=== PATIENT | female | born 1955 | race Caucasian/White ===

== ENCOUNTER 2017-10-02 06:34 | Day surgery (SDC) | payer OTHER ==
--- NOTE | 2017-09-26 13:33 | RAD REPORT ---
EXAM DESCRIPTION: RADOP - Outpt Chest Pa/Lat (2 Views) - 09/26/2017 1:25 pm CLINICAL HISTORY: Preop chest COMPARISON: None. TECHNIQUE: PA and lateral views of the chest were obtained. FINDINGS: The lungs are clear of an acute infiltrate or mass. No failure or volume overload. Heart size is normal and central vasculature is within normal limits. No pleural effusion or pneumothorax s een. No acute bone findings seen. Surgical hardware is present left proximal humerus from prior fract ure repair. There degenerative changes at the right shoulder joint. No acute aortic finding. IMPRESSION: No acute cardiopulmonary process. Minimal fibrotic lung change present.
[2017-09-26 14:32] LABS: Absolute Lymphocytes (CBC) 1.9 K/uL (0.7-4.9); Absolute Monocytes 0.7 K/uL (0.1-1.3); Absolute Neutrophil 5.8 K/uL (1.8-8.0); Basophils % 2.1 % (0-1.3); Eosinophils % 4.1 % (0-4.4); Hematocrit 39.7 % (36.0-45.0); Lymphocytes % 21.3 % (15.3-44.8); MCH 30.8 pg (27.0-35.0); MCV 90.9 fL (80-100); Monocytes % 7.6 % (3.3-12.3); RBC Red Blood Cell Count 4.37 M/uL (3.86-4.86)
[2017-09-26 14:36] LABS: Protime INR 1.17
--- NOTE | 2017-09-26 15:07 | EKG ---
Test Date: 2017-09-26 Test Time: 13:12:51 Furnace Reliner: AAMIR MEASUREMENT RESULTS: Intervals: Rate: 73 WV: 158 QRSD: 72 QT: 406 QTc: 447 Woodruff: P: 63 WV: 158 QRS: 56 T: 35 INTERPRETIVE STATEMENTS: Normal sinus rhythm Normal ECG Compared to ECG 05/18/2006 12:28:10 No significant changes Electronically Signed On 09-26-17 15:06:29 MATERIAL MIXER by Rubén Beltran
[2017-09-26 15:47] LABS: Potassium 4.7 mEq/L (3.6-5.0)
[2017-10-02] MEDS ORDERED: NA CHLORIDE 0.9% 1,000 ML ONE (07:00)
[2017-10-02] MEDS ORDERED: CEFAZOLIN/SWI 2gm 2 GM/20 ML SYR IV SCH (07:00)
[2017-10-02] MEDS ORDERED: PROPOFOL 200 MG/20 ML VIAL IV ONE (07:28)
[2017-10-02] MEDS ORDERED: MIDAZOLAM HCL 2 MG/2 ML INJ ONE (07:28)
[2017-10-02] MEDS ORDERED: LIDOCAINE 2% MPF 5 ML VIAL ONE (07:28)
[2017-10-02] MEDS ORDERED: ONDANSETRON 4 MG/2 ML VIAL ONE (07:29)
[2017-10-02] MEDS ORDERED: FENTANYL CITR 100 MCG/2 ML ONE ×3 (07:29→09:43)
[2017-10-02] MEDS ORDERED: D50W 25 GM/50 ML SYRINGE IV ONE (07:40)
[2017-10-02] MEDS ORDERED: EPHEDRINE SULF 50 MG/5 ML SYR ONE (07:54)
[2017-10-02] MEDS ORDERED: ROCURONIUM 50 MG/5 ML VIAL IV ONE (07:54)
[2017-10-02] MEDS: BUPIVACAINE 0.5% PF 10 ML VIAL ONE ×2 (08:25→09:35)
[2017-10-02] MEDS: NA CHLORIDE 0.9% 1,000 ML ONE ×2 (08:43→09:06)
--- NOTE | 2017-10-02 10:03 | P.BOP ---
Preoperative diagnosis: right trimalleolar ankle fracture with syndesmosis injury Postoperative diagnosis: same Primary procedure: ORIF right bimalleolar ankle fracture Secondary procedure: closed treatment right posterior malleolus fracture Other procedure(s): ORIF right ankle syndesmosis Capsule Filler: NONE,NONE Estimated blood loss: <10cc Specimen: none Findings: see dictation Anesthesia: General Complications: None Implants: 6 hole Biomet distal fibula plate, 2 4.0 cannulated screws, Fluids & blood products: per anesthesia; TT: 99 mins @ 250 mmHg Transferred to: Recovery Room Condition: Good
[2017-10-02] MEDS: MEPERIDINE HCL 50 MG/ML AMP ONE ×3 (10:08→10:18)
[2017-10-02] MEDS ORDERED: PROMETHAZINE 25 MG/ML VIAL ONE (10:25)
--- NOTE | 2017-10-02 10:55 | RAD REPORT ---
EXAM DESCRIPTION: RAD - Ankle Right 2 View - 10/02/2017 10:32 am CLINICAL HISTORY: Postop ankle fracture. COMPARISON: 09/15/2017 FINDINGS: Lateral distal fibular sideplate with multiple screws seen. Medial malleolar lag screws ar e also present. A syndesmotic screw noted. Bone detail is obscured by the presence of a cast. No unex pected finding.
[2017-10-02] MEDS ORDERED: MEPERIDINE HCL 25 MG/0.5 ML ONE (10:58)
[2017-10-02] MEDS ORDERED: HYDROCODONE/APAP 7.5/325 MG TAB ONE (11:52)
--- NOTE | 2017-10-02 12:23 | RAD REPORT ---
EXAM DESCRIPTION: RAD - Ankle Right 2 View - 10/02/2017 12:16 pm CLINICAL HISTORY: Ankle fracture COMPARISON: None. FINDINGS: Fluoroscopic imaging is submitted from ORIF procedure of right ankle fracture. Details of the procedure are not available.
--- NOTE | 2017-10-02 21:35 | OP ---
Date of Procedure: 10/02/2017 Surgeon: Pato English MD Preoperative Diagnoses: 1. Right trimalleolar ankle fracture. 2. Right syndesmosis injury. Postoperative Diagnoses: 1. Right trimalleolar ankle fracture. 2. Right syndesmosis injury. Procedure Performed: 1. Open reduction and internal fixation, right trimalleolar ankle fracture with closed treatment of posterior malleolus fracture. 2. Open reduction and internal fixation of right syndesmosis injury. Anesthesia: General LMA. Fluids: Per Anesthesia record. Estimated Blood Loss: Less than 10 cc. Tourniquet Time: 99 minutes at 250 mmHg. Implants: A 6-hole Biomet distal fibular locking plate, two 4.0 cannulated screws, and a 3.5-mm cortical screws used for syndesmosis fixation. Indication For Procedure: Yamileth is a 61-year-old female, presented to my clinic with history of twisting injury to her right ankle with subsequent pain, swelling, and deformity. She was seen in the ER, diagnosed with a trimalleolar ankle fracture dislocation, it was reduced and placed in a splint and followed up in my clinic. On initial visit, the patient was noted to have fracture blisters, which were unroofed and cleaned and dressed. She followed up 1 week later with the healing of the fracture blisters, and given her unstable fracture pattern, I recommended open reduction and internal fixation. I discussed with the patient at length risks and benefits associated with the procedure. She expressed understanding and elected to proceed with operative treatment. Description Of Procedure: After informed consent was obtained, the patient was identified in the preoperative holding area. The right lower extremity was marked. The patient was then taken back to the operating room, transferred to the operative table in supine fashion, and placed under general LMA anesthesia. The right lower extremity was then prepped and draped in usual sterile fashion. A time-out was initiated. The correct patient and procedure were confirmed and identified. The patient did receive her preoperative prophylactic antibiotics. The right lower extremity was then exsanguinated using an Esmarch and tourniquet was inflated to 250 mmHg. Attention was first taken to the distal fibula where a 10-cm longitudinal incision was made at the tip of the distal fibula proximally. Dissection was then taken down to the fracture site using Metzenbaum's. The patient's peroneal nerve was identified and protected and retracted anteriorly. The fracture site was then irrigated. There was significant amount of comminution at the fracture site that was not amenable to lag screw fixation. The fracture was reduced and held out to length using a 2- point reduction clamp. A 6-hole distal fibular locking plate was selected and placed over the distal fibula and proper positioning of both coronal and sagittal branches was confirmed using fluoroscopy. Once in the proper position , a single cortical screw was placed in the proximal segment in bicortical fashion. A second cortical screw was placed in the distal aspect of the plate to help bring the plate down to the distal fibula, followed by placement of 4 locking screws in unicortical fashion on the distal segment. There was not good purchase of the cortical screw plate in the distal segment and this was replaced with a locking screw. Next, 3 screws were placed in the proximal fragment and using a 3.5 cortical screws in bicortical fashion, there was overall good reduction of the fracture as well as a good plate placement verified using fluoroscopy. Fluoroscopy was then used and the syndesmosis was stressed viatcotton's test and there was minimal motion of the syndesmosis; however, there was displacement of syndesmosis in the preoperative images. First attention was taken to the medial malleolus, where a 5 cm medial longitudinal incision was made, centered over the medial malleolus fracture that was identified which was cleaned and irrigated. There was overall good reduction of the fracture site noted on fluoroscopy too. The K-wire was placed in a retrograde fashion in the medial malleolus into the distal tibial metaphysis. Proper positioning was confirmed using fluoroscopy and two 4.0 cannulated screws were placed without complications, with overall reduction and compression noted at the fracture site. After this was completed, a reduction clamp was placed on the distal fibula and tibia to help keep the syndesmosis reduced with placement of the screw. Four cortices were drilled through the distal fibular plate with the ankle internally rotated and a size 48-mm 3.5 screw was placed with overall good purchase of distal fibula and tibia. The wound was then irrigated thoroughly with normal saline. Final x-ray images were taken with overall good reduction of the fracture site and good placement of the hardware. The subcutaneous tissue was approximated using a 2-0 Vicryl, skin was approximated using a 3-0 nylon. Sterile dressing was placed. The patient was placed in a posterior stirrup splint. Tourniquet was let down. The patient awakened and transferred to PACU in stable condition. Postoperative Plan: She will be nonweightbearing of her right lower extremity. She will be discharged under the care of her family. She will follow in my clinic for wound check and follow up earlier with problems. DUSTIN/TOMAS Voice ID: [id number] Report ID: [id number]
== END 2017-10-02 13:20 | disposition home or self-care (01) ==
LOC: OR 06:34
PROVIDERS: ATTEND Orthopaedic Surgery Sports Medicine
PROC: 0QSJ04Z Reposition Right Fibula with Internal Fixation Device, Open Approach (ICD-10-PCS; 2017-10-02)
PROC: 0QSG04Z Reposition Right Tibia with Internal Fixation Device, Open Approach (ICD-10-PCS; 2017-10-02)
PROC: 0SSF04Z Reposition Right Ankle Joint with Internal Fixation Device, Open Approach (ICD-10-PCS; 2017-10-02)
PROC: 0QSGXZZ Reposition Right Tibia, External Approach (ICD-10-PCS; principal; 2017-10-02 07:30)
DX: S82.851A Displaced trimalleolar fracture of right lower leg, initial encounter for closed fracture (principal)
CPT/HCPCS: 27768; 27822; 27829; 36415; 71046; 73600 ×2; 80048; 82962 ×3; 85025; 85610; 85730; 93005; J0690; J2175 ×2; J2250; J2405; J2550; J3010 ×3; J7030 ×2